=== PATIENT | male | born 1940 | race Caucasian/White ===

== ENCOUNTER 2016-12-31 04:07 | Emergency (ER) | payer OTHER ==
[~2016-12-31] VITALS: Ht 175.3 cm; Wt 90.4 kg
[2016-12-31] MEDS ORDERED: PERCOCET 5/31 TABLET PO (05:01)
[2016-12-31 05:23] VITALS: BP 165/87
== END 2016-12-31 05:24 | disposition home or self-care (01) ==
LOC: EME 04:07
DX: S22.32XA Fracture of one rib, left side, initial encounter for closed fracture (principal); W06.XXXA Fall from bed, initial encounter; R91.8 Other nonspecific abnormal finding of lung field
CPT/HCPCS: 71250; 99281; 99284; J3010

== ENCOUNTER 2017-11-04 03:52 | Emergency (ER) | payer OTHER ==
[~2017-11-04] VITALS: Ht 175.3 cm; Wt 87.3 kg
[~2017-11-04 03:52] MED LIST: PERCOCET 5/31 TABLET PO
[2017-11-04 05:48] LABS: HEMATOCRIT 44.6 % (38.0-50.0); MCH 31.2 PG (29.0-34.0); MCHC 33.6 G/DL (30.0-36.0); MCV 92.7 FL (86-99); PLATELET COUNT 178 K/uL (156-360); RBC DIS.WIDTH-CV 13.2 % (11.8-14.6); RBC DIS.WIDTH-SD 45.2 % (39-53); RED BLOOD COUNT 4.81 M/uL (4.00-5.50); WHITE BLOOD COUNT 10.4 K/uL (4.1-10.2)
[2017-11-04] MEDS ORDERED: KENALOG,ARISTOC80 GM TP (05:56)
[2017-11-04] MEDS ORDERED: ATARAX,VISTARIL50 MG PO (05:56)
[2017-11-04 06:01] LABS: ALBUMIN 3.9 g/dL (3.2-4.8)
[2017-11-04] MEDS ORDERED: KEFLEX500 MG PO (06:01)
[2017-11-04 06:02] LABS: CHLORIDE 105 mEq/L (99-109); POTASSIUM 3.4 mEq/L (3.7-5.4); SODIUM 138 mEq/L (136-147)
[2017-11-04 06:04] LABS: GLUCOSE 111 mg/dL (70-99); TOTAL PROTEIN 6.9 g/dL (6.4-8.3)
[2017-11-04 06:06] LABS: TOTAL BILIRUBIN 1.1 mg/dL (0.0-1.0)
[2017-11-04 06:07] LABS: ALKALINE PHOSPHATASE 76 IU/L (3-129)
[2017-11-04 06:08] LABS: CREATININE 0.8 mg/dL (0.6-1.3); GFR ESTIMATE (CALCULATED) > 59 mL/min/ (58.99-99999)
[2017-11-04 06:09] LABS: AST (GOT) 18 IU/L (2-34); UREA NITROGEN (BUN) 11 mg/dL (9-23)
[2017-11-04 06:11] LABS: ALT (GPT) 18 IU/L (3-49)
[2017-11-04 06:12] VITALS: BP 162/84
[2017-11-04 07:15] LABS: C-REACTIVE PROTEIN 27.6 MG/L (0-10)
== END 2017-11-04 06:13 | disposition home or self-care (01) ==
LOC: EME 03:52
PROVIDERS: Physician Assistant
DX: L73.9 Follicular disorder, unspecified (principal)
CPT/HCPCS: 80053; 85027; 86140; 99281; 99284; Q0177